=== PATIENT | female | born 1950 | race African-American/Black ===

== ENCOUNTER 2018-12-02 10:12 | Emergency (ER) | payer MEDICAID ==
[~2018-12-02] VITALS: Ht 149.9 cm; Wt 45.0 kg
[~2018-12-02 10:12] MED LIST: AMLO1TAB39 PO
[2018-12-02] MEDS ORDERED: ONDANSETRON HCL 4MG/2ML INJ IV STA (10:28)
[2018-12-02] MEDS ORDERED: MORPHINE SULFATE 4 MG/ML CPJ (NOT FOR IM USE) IV STA (10:28)
[2018-12-02] MEDS ORDERED: SODIUM CHLORIDE 0.9% 1,000 ML IV ONE (10:28)
[2018-12-02 11:22] LABS: BASOPHILS % 0.4 % (0.0-2.0); CLARITY URINE CLOUDY (CLEAR); COLOR URINE YELLOW (YELLOW); EOSINOPHILS % 0.9 % (0.0-5.0); HEMATOCRIT. 43.8 % (36.0-48.0); HEMOGLOBIN. 14.2 g/dL (12.0-16.0); KETONES URINE NEGATIVE (NEGATIVE); LEUKOCYTE ESTERASE URINE NEGATIVE (NEGATIVE); LYMPHOCYTES % 23.9 % (20.0-50.0); MEAN CORPUSCULAR HEMOGLOBIN 26.9 pg (28.0-32.0); MEAN CORPUSCULAR VOLUME 83.1 fL (81.0-99.0); MEAN PLATELET VOLUME 9.9 fl (7.4-10.4); MONOCYTES % 6.8 % (2.0-8.0); NITRITE URINE NEGATIVE (NEGATIVE); OCCULT BLOOD URINE NEGATIVE (NEGATIVE); PH URINE 5.5 (4.5-8.0); PLATELET 220 x1000/uL (130-400); PROTEIN URINE NEGATIVE (NEGATIVE); RED BLOOD CELL COUNT 5.27 mill/uL (4.2-5.4); RED CELL DISTRIBUTION WIDTH 16.1 % (11.6-14.6); SPECIFIC GRAVITY URINE 1.025 (1.005-1.030); UROBILINOGEN URINE 0.2 E.U./dL (0.2-1.0)
[2018-12-02 11:27] LABS: CHLORIDE 114 mEq/L (98-107)
[2018-12-02] MEDS ORDERED: IOHEXOL-300 100 ML BOTTLE ONE (15:40)
[2018-12-02 17:11] VITALS: BP 239/108
[2018-12-02] MEDS ORDERED: CLONIDINE 0.2MG TABLET PO ONE (17:30)
== END 2018-12-02 18:04 | disposition home or self-care (01) ==
LOC: ER 10:12
DX: R10.31 Right lower quadrant pain (principal); E86.0 Dehydration; K42.9 Umbilical hernia without obstruction or gangrene; I10 Essential (primary) hypertension; F17.210 Nicotine dependence, cigarettes, uncomplicated; Z59.0 Homelessness; Z98.890 Other specified postprocedural states
CPT/HCPCS: 36415; 74177; 80053; 81003; 83690; 85025; 96361; 96374; 96375; 99284; J2270; J2405; J7030; Q9967

== ENCOUNTER 2018-12-13 09:50 | Emergency (ER) | payer MEDICAID ==
[~2018-12-13] VITALS: Ht 149.9 cm; Wt 45.0 kg
[2018-12-13 12:23] LABS: *COCAINE SCREEN URINE PRESUMTIVE POSITIVE (NEGATIVE); METHADONE URINE SCREEN NEGATIVE (NEGATIVE)
[2018-12-13 12:24] LABS: *AMPHETAMINES SCREEN URINE NEGATIVE (NEGATIVE); *BARBITURATES SCREEN URINE NEGATIVE (NEGATIVE); *BENZODIAZEPINES SCREEN URINE NEGATIVE (NEGATIVE); CANNABINOID URINE SCREEN NEGATIVE (NEGATIVE); OPIATES URINE SCREEN NEGATIVE (NEGATIVE); PHENCYCLIDINE URINE SCREEN NEGATIVE (NEGATIVE)
[2018-12-13 13:26] VITALS: BP 139/74
== END 2018-12-13 14:00 | disposition home or self-care (01) ==
LOC: ER 09:50
DX: K46.9 Unspecified abdominal hernia without obstruction or gangrene (principal); I10 Essential (primary) hypertension
CPT/HCPCS: 36415; 80305; 80320; 93005; 99284; G0480